=== PATIENT | male | born 1960 | race Caucasian/White ===

== ENCOUNTER 2019-04-22 05:21 | Emergency (ER) | payer BC ==
[2019-04-22 05:35] VITALS: BP 127/90; PULSE 76; TEMP 98.5; BMI 33.3
--- NOTE | 2019-04-22 05:44 | PDOC ---
History of Present Illness - General Chief Complaint: Pain Stated Complaint: LT WRIST PAIN Time Seen by Provider: 04/22/19 05:33 History Source: Patient Exam Limitations: No Limitations - History of Present Illness Initial Comments: 04/22/19 05:43 This is a 58-year-old male who denies any trauma but says that his left wrist is swollen and painful. Patient denies any fevers or chills. Patient took some Tylenol without relief so comes in for evaluation. Allergies: as per nursing notes Past Medical History: none Social history: Lives with family. No smoking. No alcohol. No illicit drugs. Surgical history: None General: No fevers or chills, no weakness, no weight loss HEENT: No change in vision. No sore throat,. No ear pain CardioVascular: no chest discomfort. No shortness of breath Respiratory:No cough, or wheezing. Gastrointestinal: no nausea, vomiting, diarrhea or constipation, No rectal bleeding Genitourinary: No dysuria, hematuria, or frequency Musculoskeletal: Left wrist pain as per HPI Neurologic: No headache, vertigo, dizziness or loss of consciousness Psychiatric: nor depression Skin: No rashes or easy bruising Endocrine: no increased thirst or abnormal weight change Allergic: no skin or latex allergy All other systems reviewed and normal GENERAL: The patient is awake, alert, and fully oriented, in no acute distress. HEAD: Normal with no signs of trauma. EYES: Pupils equal, round and reactive to light, extraocular movements intact, sclera anicteric, conjunctiva clear. EXTREMITIES:atraumatic, left wrist there is some swelling over the dorsum of the wrist with tenderness on palpation. There is limited range of motion secondary to the pain and swelling. Neurovascular is intact. NEUROLOGICAL: Normal speech, normal gait. PSYCH: Normal mood, normal affect. SKIN: Warm, Dry, normal turgor, no rashes or lesions noted. Past History - Past Medical History Allergies/Adverse Reactions: Allergies Allergy/AdvReac Type Severity Reaction Status Date / Time No Known Allergies Allergy Unverified 04/22/19 05:23 Home Medications: Ambulatory Orders NK [No Known Home Medication] 04/22/19 COPD: No - Psycho Social/Smoking Cessation Hx Smoking History: Never smoked *Physical Exam - Vital Signs Last Vital Signs Temp Pulse Resp BP Pulse Ox 98.5 F 76 16 127/90 99 04/22/19 05:22 04/22/19 05:22 04/22/19 05:22 04/22/19 05:22 04/22/19 05:22 Discharge - Discharge Information Problems reviewed: Yes Clinical Impression/Diagnosis: Left wrist pain Condition: Stable Disposition: HOME - Admission No - Follow up/Referral Referrals: Shmuel Valdez MD [Staff Physician] - - Patient Discharge Instructions Additional Instructions: For the pain take naproxen 2 tablets twice a day with food do not take on an empty stomach. Return to the emergency department immediately with ANY new, persistent or worsening symptoms. Continue any medications as previously prescribed by your physician. You should follow up with your primary doctor as soon as possible regarding today's emergency department visit. . Please make sure your doctor reviews the results of your emergency evaluation. Thank you for coming to the Emergency Department today for your care. It was a pleasure to see you today. Please note that your evaluation is INCOMPLETE until you follow-up with your doctor. - Post Discharge Activity
[2019-04-22] MEDS ORDERED: IBUPROFEN 600 MG TABLET (FP) PO ONE ×2 (05:54→06:49)
== END 2019-04-22 06:55 | disposition home or self-care (01) ==
LOC: FER 05:21
DX: M25.532 Pain in left wrist (principal)
CPT/HCPCS: 73110-TC-LT-FY; 99283-25